=== PATIENT | female | born 1945 | race Caucasian/White ===

== ENCOUNTER 2023-01-28 12:23 | Day surgery (SDC) | payer MEDICARE ==
[2023-01-23 14:11] VITALS: BMI 27.4
[2023-01-28] MEDS ORDERED: LIDOCAINE 1% (10MG/ML) FOR IV START INTRADERMA PRN (12:38)
[2023-01-28 12:47] VITALS: RESP 16; TEMP 98.2
[2023-01-28] MEDS: LACTATED RINGERS 1,000 ML IV SCH ×2 (12:57→13:26)
[2023-01-28] MEDS ORDERED: PROPOFOL 10 MG/ML 20 ML VIAL IV ONE (13:27)
--- NOTE | 2023-01-28 13:30 | P.GSHP ---
History of Present Illness H&P Date: 01/28/23 Chief Complaint: Colon cancer screening, polyps 77 row female here for colonoscopy. Last colonoscopy 5 years ago in [place]. Patient with multiple colon polyps. No family history of colon cancer. No bowel complaints. Past Medical History History of Any Multi-Drug Resistant Organisms: None Reported Past Surgical History: Hysterectomy Additional Past Surgical History / Comment(s): colonoscopy 2018, partial hysterectomy Past Anesthesia/Blood Transfusion Reactions: No Reported Reaction Additional Past Anesthesia/Blood Transfusion Reaction / Comment(s): no blood transfusion Smoking Status: Never smoker Medications and Allergies Home Medications Medication Instructions Recorded Confirmed Type No Known Home Medications 01/28/23 01/28/23 History Allergies Allergy/AdvReac Type Severity Reaction Status Date / Time No Known Allergies Allergy Verified 01/28/23 12:39 Surgical - Exam Vital Signs Temp Pulse Resp BP Pulse Ox 98.2 F 66 16 160/69 95 01/28/23 12:43 01/28/23 12:43 01/28/23 12:43 01/28/23 12:43 01/28/23 12:43 Physical exam: General: Well-developed, well-nourished HEENT: Normocephalic, sclerae nonicteric Abdomen: Nontender, nondistended Extremities: No edema Neuro: Alert and oriented Assessment and Plan (1) Colon cancer screening Narrative/Plan: Will proceed with colonoscopy at this time. Current Visit: Yes Status: Acute Code(s): Z12.11 - ENCOUNTER FOR SCREENING FOR MALIGNANT NEOPLASM OF COLON SNOMED Code(s): 283367512
--- NOTE | 2023-01-28 13:49 | P.PCN ---
Date of Procedure: 01/28/23 Procedure(s) Performed: PREOPERATIVE DIAGNOSIS: Screening with history of polyps POSTOPERATIVE DIAGNOSIS: Cecal polyp PROCEDURE: Colonoscopy with snare polypectomy and clipped ANESTHESIA: MAC SURGEON: Theodore Pedersen M.D. SPECIMENS: Cecal polyp ENDOSCOPIC PROCEDURE: The patient was placed on the endoscopy table in the left decubitus position. The Olympus colonoscope was inserted into the anus and passed under direct visualization to the base of the cecum. The appendiceal orifice was visualized. From that point the scope was slowly withdrawn inspecting all surfaces carefully. There was noted to be a small sessile polyp at the base of the cecum. This was removed using the snare with cautery tech nique. A small amount of oozing from that area was noted and controlled using a single firing of a endoscopic clip. The remainder of the ascending transverse descending sigmoid and rectum appeared normal. There was no visible diverticulosis. Digital rectal examination was normal. The patient was taken to the recovery room in stable condition per anesthesia guidelines. RECOMMENDATIONS: Await biopsy results. Repeat colonoscopy likely in 5 years. Will contact patient with endoscopic findings.
[2023-01-28 14:06] VITALS: BP 140/90; PULSE 68
== END 2023-01-28 14:21 ==
LOC: ORWHC2ENDO 12:23
PROVIDERS: ATTEND Surgery
DX: Z12.11 Encounter for screening for malignant neoplasm of colon (principal); C18.9 Malignant neoplasm of colon, unspecified
CPT/HCPCS: 88305; 45385; J2704; 45382